=== PATIENT | male | born 1950 | race Caucasian/White ===

== ENCOUNTER → 2020-03-07 | Outpatient (CLI) | payer MEDICARE | LOC: LAB 13:33 | PROVIDERS: Physician Assistant Medical | DX: E83.52 Hypercalcemia (principal); E87.5 Hyperkalemia | CPT/HCPCS: 36415; 80053 ==

== ENCOUNTER 2021-01-18 12:04 | Emergency (ER) | payer MEDICARE ==
[~2021-01-18] VITALS: Ht 180.3 cm; Wt 92.5 kg
== END 2021-01-18 14:50 | disposition home or self-care (01) ==
LOC: ER1 12:04
DX: U07.1 COVID-19 (principal); I10 Essential (primary) hypertension; E78.5 Hyperlipidemia, unspecified; Z85.828 Personal history of other malignant neoplasm of skin; Z23 Encounter for immunization
CPT/HCPCS: 99283; M0245

== ENCOUNTER 2021-01-24 17:53 | Emergency (ER) | payer MEDICARE ==
[2021-01-24 19:31] LABS: HEMOGLOBIN 14.8 gm/dl (14.0-17.5); RED BLOOD COUNT 4.98 M/UL (4.20-5.50); WHITE BLOOD COUNT 12.6 K/UL (4.5-11.0)
[2021-01-24] MEDS ORDERED: LODINE CAP 300300 MG PO (22:24)
[2021-01-24] MEDS ORDERED: NORFLEX 100 MG100 MG PO (22:24)
[2021-01-24] MEDS ORDERED: PROVENTIL HFA6.7 GM INH (22:47)
[2021-01-24] MEDS ORDERED: BENZONATATE100 MG PO (22:47)
== END 2021-01-24 22:28 | disposition home or self-care (01) ==
LOC: ER1 17:53
PROVIDERS: Nurse Practitioner
DX: U07.1 COVID-19 (principal); S39.012A Strain of muscle, fascia and tendon of lower back, initial encounter; I12.9 Hypertensive chronic kidney disease with stage 1 through stage 4 chronic kidney disease, or unspecified chronic kidney disease; N18.9 Chronic kidney disease, unspecified; E78.5 Hyperlipidemia, unspecified; Z85.828 Personal history of other malignant neoplasm of skin; Z91.041 Radiographic dye allergy status; X58.XXXA Exposure to other specified factors, initial encounter
CPT/HCPCS: 71045; 72131; 80048; 85025; 96374; 96375; 99284